=== PATIENT | male | born 1930 | race Caucasian/White ===

== ENCOUNTER 2017-09-16 16:55 | Inpatient (IN) | payer OTHER ==
[~2017-09-16] VITALS: Ht 177.8 cm; Wt 79.4 kg
[2017-09-16 16:57] VITALS: BP 122/57
[2017-09-16] MEDS ORDERED: ACETAMINOPHEN EXTRA STRENGTH 500 MG TAB PO ONE (17:00)
--- NOTE | 2017-09-16 17:00 | NUR ---
87/M BIBA C/O SOB STARTING TODAY; GRADUAL ONSET AND FEVER STARTING TODAY; AT HOME WITH FLU LIKE S/SX X1 WEEK.HX CVA, DM, HTN, HIGH CHOLESTEROL. DENIES N/V/D; BRUISE LFA & SMALL REDNESS TO SACRAL& BLL SWELLING & REDNESS. AAOX4, PT AMB WITH W/C AT [facility]. LUNGS CONGESTED BL; PATIENT STATES PAIN OF 0/10 AT THIS TIME; PATIENT POSITIONED FOR COMFORT; HOB ELEVATED; BEDRAILS UP X2; BED DOWN. ER MD MADE AWARE OF PT STATUS.
[2017-09-16 17:39] LABS: BASOPHILS % (AUTO) 0.3 % (0.0-2.0); EOSINOPHILS # (AUTO) 0.1 K/uL (0-0.4); EOSINOPHILS % (AUTO) 0.6 % (0.0-4.0); HEMATOCRIT 37.3 % (36-52); HEMOGLOBIN 12.6 g/dL (12.0-18.0); LYMPHOCYTES # (AUTO) 0.9 K/uL (2.0-11.5); LYMPHOCYTES % (AUTO) 10.5 % (20.5-51.1); MEAN CORPUSCULAR HEMOGLOBIN 33 pg (27-31); MEAN CORPUSCULAR HGB CONC 34 g/dL (33-37); MEAN CORPUSCULAR VOLUME 98 fL (80-94); MONOCYTES # (AUTO) 0.5 K/uL (0.8-1.0); NEUTROPHILS % (AUTO) 82.6 % (42.2-75.2); PLATELET COUNT (AUTO) 145 K/uL (140-450); RED BLOOD CELL COUNT(AUTO) 3.82 MIL/uL (4.20-6.10); RED CELL DISTRIBUTION WIDTH 13.6 % (11.6-13.7); WHITE BLOOD COUNT (AUTO) 8.5 K/uL (4.8-10.8)
[2017-09-16 17:40] LABS: ANION GAP 13.1 (8-16); CHLORIDE 101 mmol/L (98-107); GLUCOSE 132 mg/dL (74-106); POTASSIUM 4.1 mmol/L (3.5-5.1); SODIUM SERUM 135 mmol/L (136-145); UREA NITROGEN, BLOOD 15 mg/dL (7-18)
[2017-09-16 17:46] LABS: ALBUMIN 3.1 g/dL (3.4-5.0); ASPARTATE AMINOTRANSFERASE 17 U/L (15-37); TOTAL BILIRUBIN 0.9 mg/dL (0.0-1.0)
--- NOTE | 2017-09-16 18:04 | NUR ---
SON AT BEDSIDE.
[2017-09-16] MEDS ORDERED: NACL 0.9% 500 ML IV ONE ×2 (18:05→20:20)
[2017-09-16] MEDS ORDERED: ONDANSETRON 4 MG/2 ML VIAL IM/IVP PRN (18:35)
[2017-09-16] MEDS ORDERED: DOCUSATE SODIUM 100 MG GELCAP PO PRN (18:35)
[2017-09-16] MEDS ORDERED: MORPHINE SULFATE 4 MG/ML SYR IVP PRN (18:35)
[2017-09-16] MEDS ORDERED: HYDROcodone/APAP 7.5/325 MG 1 TAB PO PRN (18:35)
[2017-09-16 19:00] LABS: PROTHROMBIN TIME 13.2 secs (10.8-13.4)
[2017-09-16 19:09] LABS: CHOL/HDL RATIO 2.6 (1-4.5); MAGNESIUM 1.6 mg/dL (1.8-2.4); PHOSPHORUS 3.7 mg/dL (2.5-4.9); THYROID STIMULATING HORMONE 2.01 uIU/mL (0.34-3.74)
[2017-09-16] MEDS ORDERED: CARV12.5 PO (19:17)
[2017-09-16] MEDS ORDERED: PIOG30TA28 PO (19:17)
[2017-09-16] MEDS ORDERED: SIMV10TA1 PO (19:17)
[2017-09-16] MEDS ORDERED: GLIP5TER PO (19:17)
[2017-09-16] MEDS ORDERED: ASCO500T45 PO (19:17)
[2017-09-16] MEDS ORDERED: APIX5TAB PO (19:17)
[2017-09-16] MEDS ORDERED: SYN.05 PO (19:17)
[2017-09-16] MEDS ORDERED: ASPI81CT89 PO (19:17)
[2017-09-16] MEDS ORDERED: CALC1CAP45 PO (19:17)
[2017-09-16] MEDS ORDERED: SPIR50TA PO (19:17)
[2017-09-16 19:20] VITALS: BP 100/49
--- NOTE | 2017-09-16 19:20 | NUR ---
ADMITTED A 87M FROM ER. CAME BY SUE WITH O2 BY VENTURI MASK ,O2 SAT 99%. ACCOMPANIED BY SON. AWAKE,ALERT AND ORIENTED X4. ON TELE MONITOR. BEDREST. WITH GENERALIZED WEAKNESS, WHEELCHAIR BOUND. HL ON THE LT AC#20. CLEAR AND PATENT. SKIN INTACT. JUST HAVE BRUISED ON LT ARM. ORIENTED TO HOSPITAL ROUTINES. PLAN OF CARE DISCUSSED AND VERBALIZED UNDERSTANDING. BED ON LOW POSITION, FREQUENT ROUNDS NEEDED. CALL LIGHT PLACED WITHIN EASY REACH. WILL CONTINUE TO MONITOR.
--- NOTE | 2017-09-16 19:30 | NUR ---
Patient will be admitted to care of DR NAVARRO. Admited to TELE. Will go to room 121B. Belongings list completed. Report to OSWALDO CUMMINS.
[2017-09-16] MEDS ORDERED: DEXTROSE 50% 50 ML SYR IVP PRN (19:45)
--- NOTE | 2017-09-16 20:30 | NUR ---
CALLED CT SCAN , NO ANSWER. SO TRIED TO CALL XRAY DEPT. HEATER HELPER BUSY IN ER. WILL CALL AGAIN LATER.
--- NOTE | 2017-09-16 21:45 | NUR ---
CALLED CT DEPT. ABLE TO TALKED TO LAUNDRY OPERATOR. HE SAID STILL BUSY. WILL LET ME KNOW WHEN HE CAN DO CT CHEST WITH CONTRAST.
[2017-09-16] MEDS ORDERED: CLINDAMYCIN 900 MG/6 ML VIAL IV ONE (21:58)
[2017-09-16] MEDS ORDERED: FUROSEMIDE 20 MG/2 ML VIAL IVP SCH (22:00)
[2017-09-16] MEDS ORDERED: MAG SULF 2000 MG/WATER PREMIX 50 ML IV SCH (22:00)
[2017-09-16] MEDS: BLOOD GLUCOSE MONITORING 1 DEV DEV FS SCH (22:28)
--- NOTE | 2017-09-16 22:28 | NUR ---
BLOOD SUGAR WAS CHECKED RESULT 144. NO INSULIN COVERAGE NEEDED. PT HAD SOME SANDWICH AND JUICE.
[2017-09-16 22:30] VITALS: BP 97/42
[2017-09-16] MEDS: LEVOTHYROXINE 0.05 MG TAB PO SCH (22:30)
--- NOTE | 2017-09-16 22:30 | NUR ---
TOLD DR. LAZARO THAT CT CHEST NOT DONE YET AND PT ALREADY HUNGRY. WANTS TO EAT. SO HE SAID TO CALL AGAIN CT DEPT, AND IF CAN'T DO IT IN AN HOUR. CAN JUST DO IT SILVIA. CALLED TUMOR REGISTRAR AND HE SAID HE CAN'T DO IT TONIGHT. HE SAID , WILL ENDORSE TO AM TECH TO BE DONE AT 0600 AM TOMORROW.
[2017-09-16] MEDS: CARVEDILOL 12.5 MG TAB PO SCH (22:31)
[2017-09-16] MEDS: APIXABAN 2.5 MG TAB PO SCH (22:31)
[2017-09-16] MEDS: CLINDAMYCIN 900 MG in DEXTROSE 5% 100 ML IV SCH (22:34)
[2017-09-16] MEDS: NACL 0.9% 1,000 ML IV SCH (23:00)
--- NOTE | 2017-09-16 23:20 | NUR ---
DR. LAZARO MADE AWARE THAT CT CHEST TO BE DONE SILVIA AND WILL BE DONE SILVIA. AND ELIQUIST NOT AVAILABLE ,COREG AND LASIX NOT GIVEN, BP LOW 97/49. HE SAID OK AND CAN START SILVIA. .
[2017-09-16] MEDS: LEVOFLOXACIN 500 MG/D5W PREMIX 100 ML IV SCH (23:50)
--- NOTE | 2017-09-17 00:45 | NUR ---
FOLLOW UP WITH X RAY REGARDING THE US ARTERIAL BLE ON PT. TALKED TO OLVIN,SHE SAID IT WILL BE DONE SILVIA @630.
--- NOTE | 2017-09-17 01:00 | NUR ---
URINE SPECIMEN COLLECTED. SENT SPECIMEN TO LAB.
--- NOTE | 2017-09-17 02:00 | NUR ---
SLEEPING AT THIS TIME. NO S/S OF ANY DISTRESS NOTED. PT ON O22L/NC. WILL CONTINUE TO MONITOR.
[2017-09-17 02:39] LABS: APPEARANCE,URINE SL CLOUDY (CLEAR); BILIRUBIN,URINE NEGATIVE (NEGATIVE); BLOOD, URINE TRACE-I (NEGATIVE); COLOR,URINE YELLOW (YELLOW); LEUKOCYTE ESTERASE ,URINE 1+ (NEGATIVE); NITRITE, URINE NEGATIVE (NEGATIVE); UGLUCOSE NEGATIVE (NEGATIVE)
[2017-09-17 03:22] LABS: RBC,URINE 3-10 (FEW) /HPF (0-5)
[2017-09-17 04:55] VITALS: BP 136/73
[2017-09-17] MEDS ORDERED: CLINDAMYCIN 900 MG/6 ML VIAL IV ONE ×2 (05:08→13:10)
[2017-09-17] MEDS: CLINDAMYCIN 900 MG in DEXTROSE 5% 100 ML IV SCH ×3 (05:18→20:40)
[2017-09-17] MEDS: NACL 0.9% 1,000 ML IV SCH (05:19)
[2017-09-17] MEDS ORDERED: HYDRAGUARD CREAM TP PRN (05:45)
[2017-09-17 06:18] LABS: T4 (THYROXINE) 7.2 ug/dL (4.5-12.0)
[2017-09-17] MEDS: BLOOD GLUCOSE MONITORING 1 DEV DEV FS SCH ×4 (06:38→20:10)
--- NOTE | 2017-09-17 06:38 | NUR ---
BLOOD SUGAR THIS AM WAS CHECKED RESULT 124. NO INSULIN NEEDED.
--- NOTE | 2017-09-17 07:30 | NUR ---
Received patient report at bedside. Patient awake and alert, on 2L O2. No s/s of distress. Patient denies any discomfort. Discoloration noted to BUE. +2 pitting edema to BLE. IV line on L AC leaking, discontinued. Will reinsert a new one. Patient on tele monitor. Bed lowered, call light within reach. Will continue to monitor.
--- NOTE | 2017-09-17 07:30 | NUR ---
ENDORSED PT IN STABLE CONDITION TO AM NURSE.
[2017-09-17 07:34] LABS: ANION GAP 13.3 (8-16); CARBON DIOXIDE 26.9 mmol/L (21-32); CHLORIDE 100 mmol/L (98-107); CREATININE 0.9 mg/dL (0.7-1.3); GLUCOSE 137 mg/dL (74-106); POTASSIUM 4.2 mmol/L (3.5-5.1); SODIUM SERUM 136 mmol/L (136-145); UREA NITROGEN, BLOOD 18 mg/dL (7-18)
[2017-09-17 07:44] LABS: HEMATOCRIT 34.4 % (36-52); HEMOGLOBIN 11.5 g/dL (12.0-18.0); MEAN CORPUSCULAR HEMOGLOBIN 33 pg (27-31); MEAN CORPUSCULAR HGB CONC 33 g/dL (33-37); MEAN CORPUSCULAR VOLUME 97 fL (80-94); PLATELET COUNT (AUTO) 148 K/uL (140-450); RED BLOOD CELL COUNT(AUTO) 3.53 MIL/uL (4.20-6.10); RED CELL DISTRIBUTION WIDTH 12.8 % (11.6-13.7); WHITE BLOOD COUNT (AUTO) 10.6 K/uL (4.8-10.8)
[2017-09-17] MEDS: ACETAMINOPHEN 325 MG TAB PO PRN ×2 (07:53→14:11)
[2017-09-17 08:00] VITALS: BP 120/52
--- NOTE | 2017-09-17 08:53 | NUR ---
Patient's temp rechecked. Patient's temp 100, no signs and symptoms of distress. will continue to monitor
--- NOTE | 2017-09-17 10:13 | NUR ---
PATIENT HAS BEEN SCREENED AND CATEGORIZED HIGH NUTRITION RISK. PATIENT WILL BE SEEN WITHIN 1-2 DAYS OF ADMISSION. 09/16/17-09/17/[address]
[2017-09-17 10:31] LABS: LYMPHOCYTES % (MANUAL) 8 % (20-46); MONOCYTES % (MANUAL) 8 % (5-12)
--- NOTE | 2017-09-17 11:39 | NUR ---
patient back from procedure, stable condition
[2017-09-17] MEDS: LACTOBACILLUS RHAMNOSUS GG 1 EACH CAP PO SCH (11:42)
[2017-09-17] MEDS: SPIRONOLACTONE 25 MG TAB PO SCH (11:44)
[2017-09-17] MEDS: ECOTRIN 81 MG TABEC PO SCH (11:46)
[2017-09-17] MEDS: FUROSEMIDE 20 MG/2 ML VIAL IVP SCH (11:47)
[2017-09-17] MEDS: CARVEDILOL 12.5 MG TAB PO SCH ×2 (11:47→20:41)
[2017-09-17] MEDS: PIOGLITAZONE 30 MG TAB PO SCH (11:55)
[2017-09-17] MEDS: glipiZIDE ER 5 MG TABER PO SCH (11:55)
[2017-09-17] MEDS: APIXABAN 2.5 MG TAB PO SCH ×2 (11:58→20:40)
[2017-09-17 12:00] VITALS: BP 117/55
[2017-09-17] MEDS ORDERED: HYDRAGUARD CREAM TP ONE (13:00)
[2017-09-17] MEDS: HYDRAGUARD CREAM TP SCH (13:26)
--- NOTE | 2017-09-17 13:30 | NUR ---
Patient son at bedside. Patient given perineal care, hydroguard applied to perineal area d/t redness. Placement of large condom catheter per doctors order. Patient is stable, alert and awake with no s/s of distress. Will continue to monitor.
--- NOTE | 2017-09-17 14:24 | NUR ---
09/17/2017 RD INITIAL ASSESSMENT COMPLETED PLEASE REFER TO NUTRITION ASSESSMENT UNDER CARE ACTIVITY FOR ESTIMATED NUTRITIONAL NEEDS. CONTINUE CARDIAC DIET TOLERATED DIETARY AND NURSING STAFF TO ENCOURAGE INTKAE APPETITE IMPROVES RD TO FOLLOW-UP IN 2-3 DAYS PATIENT IS HIGH RISK. CASTILLO MCBRIDE, RD
--- NOTE | 2017-09-17 15:11 | NUR ---
Rechecked temperature, patient temp is 98.5. Patient awake, alert, and oriented. Will continue to monitor.
[2017-09-17 16:00] VITALS: BP 100/43
--- NOTE | 2017-09-17 17:00 | NUR ---
and caregiver at bedside. Patient is asleep with no s/s of distress. Call light within reach. Will continue to monitor.
--- NOTE | 2017-09-17 17:37 | NUR ---
INITIAL REVIEW FAXED TO [facility] [phone] PHONE TANO [phone]
--- NOTE | 2017-09-17 19:22 | NUR ---
Patient report given at bedside. Patient endorsed in stable condition.
--- NOTE | 2017-09-17 19:35 | NUR ---
RECEIVED REPORT FROM DAY SHIFT, PATIENT RESTING IN BED, NO S/S OF DISTRESS NOTED, RESPIRATION EVEN AND UNLABORED, ON NC 2L. IV PATENT AND INTACT, FLUSHED 10CC NS. PLAN OF CARE DISCUSSED, PATIENT VERBALIZED UNDERSTANDING, CALL LIGHT WITHIN REACH, SAFETY MEASURE ENSURED, WILL CONTINUE TO MONITOR.
[2017-09-17 20:00] VITALS: BP 110/48
[2017-09-17] MEDS: INSULIN LISPRO SLIDING SCALE 100 UNITS/ML VIAL SUBQ PRN (20:39)
[2017-09-17] MEDS: LEVOTHYROXINE 0.05 MG TAB PO SCH (20:40)
--- NOTE | 2017-09-17 20:41 | NUR ---
BP 110/48, PATIENT SAID," MY DOCTOR TOLD ME TO HOLD BLOOD PRESSURE MEDICATION IF DIASTOLIC IS BELOW 50." MADE DR. LAZARO AWARE, DR. LAZARO SAID," IT'S OKAY TO HOLD COREG FOR TONIGHT."
--- NOTE | 2017-09-17 21:55 | NUR ---
RECEIVED CRITICAL RESULT, MADE DR. LAZARO AWARE THAT PATIENT'S LEFT LEG WITH SUSPECTED PARTIAL THROMBUS FROM THE SUPERFICIAL FEMORAL VEIN TO THE POSTERIOR TIBIAL VEIN. NO ORDER RECEIVED AT THIS TIME.
[2017-09-17] MEDS: LEVOFLOXACIN 500 MG/D5W PREMIX 100 ML IV SCH (22:24)
--- NOTE | 2017-09-17 22:29 | NUR ---
PATIENT WAS SLEEPING, BUT EASY TO AROUSE, NO S/S OF DISTRESS NOTED, RESPIRATION EVEN AND UNLABORED, LEVAQUIN STARTED, PATIENT TOLERATED WELL. BOTH FEET ELEVATED BY ONE PILLOW. CALL LIGHT WITHIN REACH, SAFETY MEASURE ENSURED, WILL CONTINUE TO MONITOR.
[2017-09-18] VITALS: BP 114/52
[2017-09-18] MEDS: HYDRAGUARD CREAM TP SCH ×2 (00:23→12:42)
--- NOTE | 2017-09-18 00:54 | NUR ---
VOIDED IN THE BED, CLEANED AND APPLIED HYDRAGUARD, AND REPOSITIONED THE PATIENT WITH THE DIETICIAN, VITAL SIGNS STABLE, CALL LIGHT WITHIN REACH, SAFETY MEASURE ENSURED, WILL CONTINUE TO MONITOR.
--- NOTE | 2017-09-18 02:37 | NUR ---
PATIENT IS SLEEPING, RESPIRATION EVEN AND UNLABORED, ON NC 2L. CALL LIGHT WITHIN REACH, SAFETY MEASURE ENSURED, WILL CONTINUE TO MONITOR.
[2017-09-18 04:00] VITALS: BP 131/55
[2017-09-18] MEDS: CLINDAMYCIN 900 MG in DEXTROSE 5% 100 ML IV SCH ×2 (04:28→11:58)
--- NOTE | 2017-09-18 04:33 | NUR ---
DUE MEDICATION GIVEN, PATIENT TOLERATED WELL. NO S/S OF DISTRESS NOTED, RESPIRATION EVEN AND UNLABORED, ON NC 2L. CALL LIGHT WITHIN REACH, SAFETY MEASURE ENSURED, WILL CONTINUE TO MONITOR.
[2017-09-18] MEDS: BLOOD GLUCOSE MONITORING 1 DEV DEV FS SCH ×4 (06:46→20:37)
[2017-09-18 07:07] LABS: BASOPHILS # (AUTO) 0.2 K/uL (0.00-0.22); BASOPHILS % (AUTO) 2.2 % (0.0-2.0); EOSINOPHILS # (AUTO) 0.2 K/uL (0-0.4); EOSINOPHILS % (AUTO) 2.6 % (0.0-4.0); HEMATOCRIT 31.4 % (36-52); HEMOGLOBIN 10.6 g/dL (12.0-18.0); LYMPHOCYTES # (AUTO) 1.7 K/uL (2.0-11.5); LYMPHOCYTES % (AUTO) 20.6 % (20.5-51.1); MEAN CORPUSCULAR HEMOGLOBIN 33 pg (27-31); MEAN CORPUSCULAR HGB CONC 34 g/dL (33-37); MEAN CORPUSCULAR VOLUME 96 fL (80-94); MONOCYTES # (AUTO) 1.2 K/uL (0.8-1.0); MONOCYTES % (AUTO) 15.3 % (1.7-9.3); NEUTROPHILS # (AUTO) 4.8 K/uL (1.8-7.7); NEUTROPHILS % (AUTO) 59.3 % (42.2-75.2); PLATELET COUNT (AUTO) 136 K/uL (140-450); RED BLOOD CELL COUNT(AUTO) 3.26 MIL/uL (4.20-6.10); RED CELL DISTRIBUTION WIDTH 12.9 % (11.6-13.7); WHITE BLOOD COUNT (AUTO) 8.1 K/uL (4.8-10.8)
--- NOTE | 2017-09-18 07:20 | NUR ---
ENDORSED PLAN OF CARE TO DAY SHIFT RN, PATIENT IS IN STABLE CONDITION.
--- NOTE | 2017-09-18 07:22 | NUR ---
RECEIVED REPORT FROM CREATIVE RESOURCE MANAGER NURSE, PT IS SLEEPING IN BED BUT EASILY AWAKEN, PT IS AAOX4, AMBULATES WITH ASSIST, PT HAS IV ON HIS LEFT AC, PATENT, INTACT, FLUSHING WELL, PT HAS CONDOM CATHETER IN PLACE AT THIS TIME, PT IS ON O2 2L NC, NO S/S OF RESPIRATORY DISTRESS OR DISCOMFORT NOTED, DISCUSSED PLAN OF CARE WITH PT, PT VERBALIZED UNDERSTANDING, SAFETY/FALL PRECAUTIONS ARE IN PLACE, CALL LIGHT WITHIN REACH, WILL CONTINUE TO MONITOR.
[2017-09-18 07:46] LABS: ANION GAP 11.8 (8-16); CARBON DIOXIDE 29.1 mmol/L (21-32); CHLORIDE 100 mmol/L (98-107); CREATININE 0.9 mg/dL (0.7-1.3); GLUCOSE 99 mg/dL (74-106); POTASSIUM 3.9 mmol/L (3.5-5.1); SODIUM SERUM 137 mmol/L (136-145); UREA NITROGEN, BLOOD 19 mg/dL (7-18)
[2017-09-18 08:00] VITALS: BP 130/55
[2017-09-18] MEDS ORDERED: FUROSEMIDE 40 MG/4 ML VIAL IVP SCH (09:00)
[2017-09-18] MEDS: LACTOBACILLUS RHAMNOSUS GG 1 EACH CAP PO SCH (09:25)
[2017-09-18] MEDS: CARVEDILOL 12.5 MG TAB PO SCH ×2 (09:26→20:42)
[2017-09-18] MEDS: SPIRONOLACTONE 25 MG TAB PO SCH (09:26)
[2017-09-18] MEDS: ECOTRIN 81 MG TABEC PO SCH (09:26)
[2017-09-18] MEDS: FUROSEMIDE 20 MG/2 ML VIAL IVP SCH (09:27)
[2017-09-18] MEDS: PIOGLITAZONE 30 MG TAB PO SCH (09:27)
[2017-09-18] MEDS: glipiZIDE ER 5 MG TABER PO SCH (09:28)
[2017-09-18] MEDS: APIXABAN 2.5 MG TAB PO SCH ×2 (09:38→20:49)
--- NOTE | 2017-09-18 09:38 | NUR ---
DUE MEDICATIONS GIVEN, PT TOLERATED WELL, CALL LIGHT WITHIN REACH.
--- NOTE | 2017-09-18 10:05 | NUR ---
CONDOM CATHETER REPLACED AT THIS TIME, PATIENT'S BED LINENS AND GOWN CHANGED, PT REPOSITIONED FOR COMFORT, ALL NEEDS ARE MET AT THIS TIME. CALL LIGHT WITHIN REACH.
--- NOTE | 2017-09-18 12:00 | NUR ---
PT SLEEPING IN BED, CALL LIGHT IS WITHIN REACH.
[2017-09-18] MEDS: INSULIN LISPRO SLIDING SCALE 100 UNITS/ML VIAL SUBQ PRN (12:41)
--- NOTE | 2017-09-18 14:30 | NUR ---
PT SLEEPING IN BED AT THIS TIME, CALL LIGHT IS WITHIN REACH.
[2017-09-18 16:00] VITALS: BP 111/41
--- NOTE | 2017-09-18 16:20 | NUR ---
PT RESTING IN BED, WATCHING TV, NO S/S OF RESPIRATORY DISTRESS OR DISCOMFORT NOTED, CALL LIGHT IS WITHIN REACH.
--- NOTE | 2017-09-18 18:47 | NUR ---
CONDOM CATHETER REPLACED AT THIS TIME. PT TOLERATED WELL, CALL LIGHT WITHIN REACH.
--- NOTE | 2017-09-18 19:20 | NUR ---
ENDORSED PT TO PEANUT CLEANER NURSE FOR CONTINUITY OF CARE, PT STABLE AT THIS TIME.
--- NOTE | 2017-09-18 19:21 | NUR ---
RECEIVED BEDSIDE REPORT FROM DAY SHIFT NURSE CULLEN RN, PT STABLE, NO DISTRESS NOTED, IV TO L AC 20G SL, PATENT, PT ON ROOM AIR, NO SOB, INITIAL ASSESSMENT DONE, ALL SAFETY PRECAUTION MET, WILL CONTINUE TO MONITOR.
[2017-09-18] MEDS: CLINDAMYCIN 900 MG in DEXTROSE 5% 50 ML IV SCH (20:37)
[2017-09-18] MEDS: LEVOTHYROXINE 0.05 MG TAB PO SCH (20:44)
--- NOTE | 2017-09-18 20:44 | NUR ---
DUE MEDICATION GIVEN, PT TOLERATED WELL, NO DISTRESS NOTED, CALL LIGHT WITHIN REACH, WILL CONTINUE TO MONITOR.
[2017-09-18] MEDS: LEVOFLOXACIN 500 MG/D5W PREMIX 100 ML IV SCH (22:19)
--- NOTE | 2017-09-18 22:19 | NUR ---
DUE MEDICATION GIVEN, PT TOLERATED WELL, NO DISTRESS NOTED, CALL LIGHT WITHIN REACH, WILL CONTINUE TO MONITOR.
[2017-09-19] VITALS: BP 118/49
--- NOTE | 2017-09-19 00:01 | NUR ---
CHECKED ON PT, PT SLEEPING, NO DISTRESS NOTED, CALL LIGHT WITHIN REACH, WILL CONTINUE TO MONITOR.
[2017-09-19] MEDS: HYDRAGUARD CREAM TP SCH (01:00)
--- NOTE | 2017-09-19 02:12 | NUR ---
PT SLEEPING NO DISTRESS NOTED, CALL LIGHT WITHIN REACH, WILL CONTINUE TO MONITOR.
[2017-09-19] MEDS: CLINDAMYCIN 900 MG in DEXTROSE 5% 50 ML IV SCH ×2 (04:47→12:48)
--- NOTE | 2017-09-19 04:47 | NUR ---
DUE MEDICATION GIVEN, PT TOLERATED WELL, NO DISTRESS NOTED, CALL LIGHT WITHIN REACH, WILL CONTINUE TO MONITOR.
[2017-09-19] MEDS: BLOOD GLUCOSE MONITORING 1 DEV DEV FS SCH ×2 (06:53→11:57)
[2017-09-19 06:59] LABS: BASOPHILS # (AUTO) 0.3 K/uL (0.00-0.22); BASOPHILS % (AUTO) 4.5 % (0.0-2.0); EOSINOPHILS # (AUTO) 0.2 K/uL (0-0.4); EOSINOPHILS % (AUTO) 2.9 % (0.0-4.0); HEMATOCRIT 31.1 % (36-52); HEMOGLOBIN 10.5 g/dL (12.0-18.0); LYMPHOCYTES # (AUTO) 1.6 K/uL (2.0-11.5); LYMPHOCYTES % (AUTO) 21.2 % (20.5-51.1); MEAN CORPUSCULAR HEMOGLOBIN 33 pg (27-31); MEAN CORPUSCULAR HGB CONC 34 g/dL (33-37); MEAN CORPUSCULAR VOLUME 97 fL (80-94); MONOCYTES # (AUTO) 1.2 K/uL (0.8-1.0); MONOCYTES % (AUTO) 15.5 % (1.7-9.3); NEUTROPHILS # (AUTO) 4.5 K/uL (1.8-7.7); NEUTROPHILS % (AUTO) 55.9 % (42.2-75.2); PLATELET COUNT (AUTO) 146 K/uL (140-450); RED BLOOD CELL COUNT(AUTO) 3.21 MIL/uL (4.20-6.10); RED CELL DISTRIBUTION WIDTH 12.6 % (11.6-13.7); WHITE BLOOD COUNT (AUTO) 7.8 K/uL (4.8-10.8)
--- NOTE | 2017-09-19 07:20 | NUR ---
ENDORSED PLAN OF CARE TO DAY SHIFT NURSE DIYA RN, PT STABLE, NO DISTRESS NOTED, CALL LIGHT WITHIN REACH.
--- NOTE | 2017-09-19 07:20 | NUR ---
RECEIVED PATIENT REPORT FROM NIGHTSHIFT NURSE AT BEDSIDE. PATIENT IS AROUSABLE AT THIS TIME BUT ASLEEP. PATIENT IS ALERT AND ORIENTED X3. NO SHORTNESS OF BREATH NOTED AT THIS TIME. PATIENT SHOWS NO SIGNS OF PAIN. UPDATED BOARD AND PUT BED IN LOWEST SETTING. PUT APPROPRIATE SIGNS OUTSIDE OF DOOR FOR SAFETY.
[2017-09-19 08:00] VITALS: BP 120/75
[2017-09-19] MEDS: LACTOBACILLUS RHAMNOSUS GG 1 EACH CAP PO SCH (08:13)
[2017-09-19] MEDS: ECOTRIN 81 MG TABEC PO SCH (08:14)
[2017-09-19] MEDS: SPIRONOLACTONE 25 MG TAB PO SCH (08:14)
[2017-09-19] MEDS: FUROSEMIDE 20 MG/2 ML VIAL IVP SCH (08:16)
[2017-09-19] MEDS: glipiZIDE ER 5 MG TABER PO SCH (08:17)
[2017-09-19] MEDS: PIOGLITAZONE 30 MG TAB PO SCH (08:18)
[2017-09-19 08:22] LABS: ANION GAP 10.1 (8-16); CARBON DIOXIDE 29.6 mmol/L (21-32); CHLORIDE 102 mmol/L (98-107); CREATININE 0.8 mg/dL (0.7-1.3); GLUCOSE 114 mg/dL (74-106); POTASSIUM 3.7 mmol/L (3.5-5.1); SODIUM SERUM 138 mmol/L (136-145); UREA NITROGEN, BLOOD 17 mg/dL (7-18)
[2017-09-19] MEDS: APIXABAN 2.5 MG TAB PO SCH (08:30)
[2017-09-19] MEDS: CARVEDILOL 12.5 MG TAB PO SCH (08:31)
--- NOTE | 2017-09-19 10:00 | NUR ---
PATIENT RESTING IN BED. PATIENT PRESENTS WITH NO RESTPIRATORY DISTRESS OR RESPIRATORY DEPRESSION. WILL CONTINUE TO MONITOR PATIENT.
--- NOTE | 2017-09-19 12:11 | NUR ---
09/19/17 RD FOLLOW UP COMPLETED PLEASE REFER TO NUTRITION PROGRESS NOTE UNDER CARE ACTIVITY FOR ESTIMATED NUTRITION NEEDS. RD RECOMMENDATIONS: 1. CONTINUE CARDIAC DIET TOLERATED. 2. DIETARY AND NURSING TO ENCOURAGE INCREASED PO INTAKES. 3. RD WILL F/U 3-5 DAYS; MODERATE RISK. KARLENE LAMAR MS, RDN
--- NOTE | 2017-09-19 12:30 | NUR ---
PATIENT WATCHING TELEVISION AT THIS TIME. PATIENT PRESENTS WITH NO SHORTNESS OF BREATH. PATIENT DOES NOT HAVE NASAL CANNULA ON AND SATURATION IS AT 95%. WILL CONTINUE TO MONITOR PATIENT.
[2017-09-19] MEDS ORDERED: LACT1.4C PO (12:38)
[2017-09-19] MEDS ORDERED: LEVO750T2 PO (12:38)
[2017-09-19] MEDS: INSULIN LISPRO SLIDING SCALE 100 UNITS/ML VIAL SUBQ PRN (12:46)
--- NOTE | 2017-09-19 14:00 | NUR ---
PATIENT ASLEEP AT THIS TIME. RESPIRATIONS ARE SYMMETRICAL AND UNLABORED. WILL CONTINUE TO MONITOR PATIENT.
--- NOTE | 2017-09-19 16:55 | NUR ---
PATIENT SIGNED ALL DISCHARGE PAPERS AND UNDERSTOOD INSTRUCTIONS. PATIENT AWARE OF HIS PRESCRIPTIONS. DISCONTINUED PATIENT'S INTRAVENOUS LINE WITH CATHETER STILL INTACT. PATIENT GATHERED ALL BELONGINGS. PREMIERE TRANSPORT EMPLOYEE TRANSPORTED PATIENT OFF THE UNIT VIA WHEELCHAIR. PATIENT LEFT WITH ALL BELONGINGS AND DISCHARGE INSTRUCTIONS. PATIENT LEFT IN STABLE CONDITION.
== END 2017-09-19 16:55 | disposition home or self-care (01) | DRG 871 ==
LOC: MED 16:55 → MTU 18:37
PROVIDERS: ADMIT Family Medicine Sports Medicine; ATTEND Family Medicine Sports Medicine
DX: A41.9 Sepsis, unspecified organism (principal); J69.0 Pneumonitis due to inhalation of food and vomit; E44.0 Moderate protein-calorie malnutrition; I50.43 Acute on chronic combined systolic (congestive) and diastolic (congestive) heart failure; E87.1 Hypo-osmolality and hyponatremia; D68.59 Other primary thrombophilia; E83.42 Hypomagnesemia; I71.2 Thoracic aortic aneurysm, without rupture; E78.00 Pure hypercholesterolemia, unspecified; E11.9 Type 2 diabetes mellitus without complications; D64.9 Anemia, unspecified; I11.0 Hypertensive heart disease with heart failure; E03.9 Hypothyroidism, unspecified; E78.5 Hyperlipidemia, unspecified; Z90.49 Acquired absence of other specified parts of digestive tract; Z88.0 Allergy status to penicillin; Z98.1 Arthrodesis status; Z86.73 Personal history of transient ischemic attack (TIA), and cerebral infarction without residual deficits; Z68.25 Body mass index [BMI] 25.0-25.9, adult
CPT/HCPCS: 36415; 71045; 71275; 80048; 80053; 81001; 82948; 83036; 83605; 83735; 83880; 84100; 84436; 84443; 84479; 84484; 85025; 85379; 85610; 85730; 87040; 87081; 87086; 87186; 87804; 93005; 93925; 93970; 96360; 99285; J1815; J1940; J1956; J3475; J3490; J7030; J7060; Q0092; Q9967